=== PATIENT | female | born 1960 | race Caucasian/White ===

== ENCOUNTER 2022-01-08 15:56 | Emergency (ER) | payer OTHER ==
[2022-01-08 16:31] LABS: BASOPHIL 0.6 % (0-2); EOSINOPHIL 1.5 % (0-5); HGB 12.2 g/dl (12.5-16.0); LYMPHOCYTE 40.8 % (15-48); MCH 32.1 pg (25.0-31.0); MCHC 34.9 g/dL (32.0-36.0); MCV 92.1 fL (78.0-100.0); MONOCYTE 6.6 % (0-12); MPV 9.6 fL (6.0-9.5); NEUTROPHIL 50.3 % (41-80); NRBC 0; PLT 266 K/uL (150-400); RDW 12.6 % (11.5-14.0); WBC 9.4 K/uL (4.0-10.5)
[2022-01-08 16:48] LABS: BILIRUBIN NEGATIVE (NEGATIVE); BLOOD 1+ Ery/uL (NEGATIVE); CLARITY CLEAR (CLEAR); COLOR YELLOW (YELLOW); GLUCOSE (U) NORMAL (NORMAL); LEUKOCYTES 1+ Leu/uL (NEGATIVE); NITRITE NEGATIVE (NEGATIVE); PROTEIN NEGATIVE (NEGATIVE); SPECIFIC GRAVITY >=1.030 (1.001-1.030); UROBILINOGEN 0.2 mg/dL (0.2-1.0); pH 5.5 (5.0-9.0)
[2022-01-08 17:04] LABS: BACTERIA TRACE; MUCOUS TRACE; SQUAMOUS EPITHELIAL CELLS 20-50
[2022-01-08 17:30] LABS: ALBUMIN 3.5 g/dL (3.4-5.0); BILIRUBIN - TOTAL 0.4 mg/dL (0.2-1.0); BUN/CREAT RATIO (CALC) 12.4 RATIO; CREATININE 1.21 mg/dL (0.51-0.95); GLOBULIN (CALCULATION) 3.6 g/dL; TOTAL PROTEIN 7.1 g/dL (6.4-8.2)
[2022-01-08 17:41] LABS: POTASSIUM 3.7 mmol/L (3.5-5.1)
[2022-01-08] MEDS ORDERED: METRONIDAZOLE500 MG PO (20:09)
[2022-01-08] MEDS ORDERED: ONDANSETRON HCL4 MG PO (20:09)
[2022-01-08] MEDS ORDERED: BENTYL10 MG PO (20:09)
[2022-01-08] MEDS ORDERED: CIPRO500 MG PO (20:09)
== END 2022-01-08 20:32 | disposition home or self-care (01) ==
LOC: FER 15:56
PROVIDERS: Nurse Practitioner Family
DX: K57.32 Diverticulitis of large intestine without perforation or abscess without bleeding (principal); N39.0 Urinary tract infection, site not specified; F17.210 Nicotine dependence, cigarettes, uncomplicated; Z88.5 Allergy status to narcotic agent; Z91.040 Latex allergy status
CPT/HCPCS: 36415; 80053; 81001; 82270; 85025; 87088; J7030